=== PATIENT | female | born 1940 | race American Indian/Alaskan Native ===

== ENCOUNTER 2019-12-10 20:01 | Emergency (ER) | payer SELFPAY ==
[2019-12-10 20:48] VITALS: BP 157/65
[2019-12-10] MEDS ORDERED: ACETAMINOPHEN 325 MG TAB PO ONE (20:51)
--- NOTE | 2019-12-10 22:06 | XRay Report ---
CLINICAL DATA: MAIN TECHNICAL DATA: AP, lateral, and odontoid views of the cervical spine were obtained. FINDINGS: The vertebral body heights are grossly normal. Diffuse bony fusion with extensive surgical changes po sterior elements noted extending from C3 to C7. No convincing evidence of an acute fracture or disloc ation IMPRESSION: Severe degenerative changes cervical spine. If clinical symptoms persist recommend MR for further ellen luation Signer Name: Fady Blackwell MD Signed: 12/10/2019 10:02 PM Workstation Name: [id number]
--- NOTE | 2019-12-10 22:07 | XRay Report ---
HISTORY:MAIN COMPARISON: None. TECHNIQUE: AP lateral and obliques views were obtained FINDINGS: Bones: No fracture or dislocation. Joint spaces: Maintained. Soft tissues: No significant abnormality. Additional findings: None. IMPRESSION: 1. No significant abnormality. Signer Name: Fady Blackwell MD Signed: 12/10/2019 10:02 PM Workstation Name: [id number]
[2019-12-10] MEDS ORDERED: NAPROXEN 500 MG TAB PO ONE (22:18)
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
== END 2019-12-10 23:45 | disposition home or self-care (01) ==
LOC: ED 20:01
DX: S16.1XXA Strain of muscle, fascia and tendon at neck level, initial encounter (principal); M25.552 Pain in left hip; I10 Essential (primary) hypertension; Z90.710 Acquired absence of both cervix and uterus; Z79.899 Other long term (current) drug therapy; Z98.890 Other specified postprocedural states; V49.49XA Driver injured in collision with other motor vehicles in traffic accident, initial encounter; Y92.410 Unspecified street and highway as the place of occurrence of the external cause; Y93.89 Activity, other specified; Y99.8 Other external cause status
CPT/HCPCS: 72040